=== PATIENT | male | born 2000 | race Caucasian/White ===

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

== ENCOUNTER 2022-01-01 07:26 | Emergency (ER) | payer OTHER ==
[~2022-01-01] VITALS: Ht 172.7 cm; Wt 75.9 kg
[~2022-01-01 07:26] MED LIST changes: +ACET650S53; -BROMALINE DM; -TYLENOL160 MG/5 M; +[UNRECOGNIZED DRUG - CODE]
[2022-01-01 07:32] VITALS: BP 132/64
--- NOTE | 2022-01-01 07:32 | NUR ---
PT SENT TO WAIT IN THE LOBBY
--- NOTE | 2022-01-01 07:59 | NUR ---
NANO, FLU AND RSV SWABBS COLLECTED AND WALKED TO LAB AND HANDED TO
--- NOTE | 2022-01-01 08:03 | NUR ---
DR. AU ASSESSING PT IN CHAIR A
--- NOTE | 2022-01-01 08:05 | NUR ---
21Y.O. M C/O FEVER X 4 DAYS. PT SAID HIS HIGHEST FEVER WAS 103.9. DENIES TAKING MEDICATION TO HELP REDUCE THE FEVER. PT ALSO HAS HAD CHILLS. DENEIS SOB, CHEST PAIN OR N/V/D. A&OX4, SKININTACT, VITALS WNL FOR PT AND STEADY GAIT. NKA [facility]
[2022-01-01 08:17] VITALS: BP 132/64
--- NOTE | 2022-01-01 08:17 | NUR ---
Patient discharged with v/s stable. Written and verbal after care instructions given and explained. Patient verbalized understanding. Ambulatory with steady gait. All questions addressed prior to discharge. Advised to follow up with PMD.
[2022-01-01 09:17] LABS: RSV Negative (NEGATIVE)
== END 2022-01-01 08:17 | disposition home or self-care (01) ==
LOC: MED 07:26
DX: U07.1 COVID-19 (principal)
CPT/HCPCS: 87420; 99283

== ENCOUNTER 2024-03-12 15:42 | Emergency (ER) | payer OTHER ==
[~2024-03-12] VITALS: Ht 175.3 cm; Wt 78.1 kg
[2024-03-12 15:50] VITALS: BP 119/73; PULSE 71; RESP 18; TEMP 98.1; O2SAT 98
[2024-03-12 16:22] LABS: APPEARANCE,URINE CLEAR (CLEAR); BILIRUBIN,URINE NEGATIVE (NEGATIVE); BLOOD, URINE 1+ (NEGATIVE); COLOR,URINE YELLOW (YELLOW); LEUKOCYTE ESTERASE ,URINE NEGATIVE (NEGATIVE); NITRITE, URINE NEGATIVE (NEGATIVE); PROTEIN,URINE NEGATIVE (NEGATIVE); UGLUCOSE NEGATIVE (NEGATIVE); UROBILINOGEN,URINE 0.2 EU/dL (0.2 - 1)
[2024-03-12 16:29] LABS: BACTERIA,URINE FEW /HPF (None Seen); SQUAMOUS EPITHELIAL CELL,UR 0-3 (FEW) /LPF (0-3 (FEW)); WBC,URINE 0-5 /HPF (0-5)
[2024-03-12] MEDS ORDERED: IBUP-2213 PO (16:41)
[2024-03-12] MEDS ORDERED: CAPS1ADH5 TP (16:41)
[2024-03-12] MEDS ORDERED: METH-1681 PO (16:41)
[2024-03-12] MEDS: IBUPROFEN 600 MG TAB PO ONE (16:44)
== END 2024-03-12 17:00 | disposition home or self-care (01) ==
LOC: MED 15:42
DX: M54.41 Lumbago with sciatica, right side (principal); Z79.899 Other long term (current) drug therapy
CPT/HCPCS: 81001; 99283